=== PATIENT | female | born 1940 | race American Indian/Alaskan Native ===

== ENCOUNTER 2020-03-26 12:34 | Observation (INO) | payer MEDICAID, MEDICARE ==
[2020-03-26] MEDS ORDERED: SODIUM CHLORIDE 0.9% 500 ML 500 ML IV ONE (13:52)
--- NOTE | 2020-03-26 14:37 | XRay Report ---
CHEST 1 VIEW 03/26/2020 2:16 PM INDICATION / CLINICAL INFORMATION: possible Sepsis. COMPARISON: None available. FINDINGS: SUPPORT DEVICES: None. HEART / MEDIASTINUM: Mild cardiomegaly with sternotomy changes. LUNGS / PLEURA: Generalized mild bilateral interstitial opacities are noted. No significant pleural e ffusion. No pneumothorax. ADDITIONAL FINDINGS: No significant additional findings. IMPRESSION: Mild cardiomegaly with questionable mild pulmonary edema. Signer Name: Roberto Ovalle MD Signed: 03/26/2020 2:33 PM Workstation Name: [id number]
[2020-03-26 14:59] LABS: Hematocrit 33.5 % (30.3-42.9); Hemoglobin 11.2 gm/dl (10.1-14.3); Mean Corpuscular HGB Conc 34 % (30-34); Mean Corpuscular Volume 85 fl (79-97); Red Blood Count 3.92 M/mm3 (3.65-5.03); Red Cell Distribution Width 16.5 % (13.2-15.2)
[2020-03-26 15:01] LABS: Platelet Count 246 K/mm3 (140-440)
[2020-03-26 15:02] LABS: INR 0.92 (0.87-1.13)
--- NOTE | 2020-03-26 15:22 | Emergency Department Report ---
ED General Adult HPI - General Chief complaint: Weakness Stated complaint: FEVER/FATIQUE/NO APPETITE Time Seen by Provider: 03/26/20 13:46 Source: EMS Mode of arrival: Stretcher Limitations: No Limitations - History of Present Illness Initial comments: This is a 79-year-old female who states that her family sent her for evaluation of fever. She does not know what her temperature was. She did not take Tylenol. She denies any other specific symptoms. Actually, initially she laughs quite jovial we when she is asked why she came here today saying that her family sent her. She states that she has had fever for the past 2 to 3 days. As far as I can tell her temperature has not been measured. She denies chills. She denies cough, vomiting or diarrhea or any apparent symptoms. She states that she has never had a serious/life-threatening infection. -: Gradual, days(s) Consistency: now resolved Associated Symptoms: denies other symptoms - Related Data Allergies Allergy/AdvReac Type Severity Reaction Status Date / Time Sulfa (Sulfonamide Allergy Unknown Verified 03/26/20 14:50 Antibiotics) ED Review of Systems ROS: Stated complaint: FEVER/FATIQUE/NO APPETITE Other details as noted in HPI Constitutional: denies: chills, fever Eyes: denies: eye pain, vision change ENT: denies: ear pain, throat pain Respiratory: denies: cough, shortness of breath Cardiovascular: denies: chest pain, palpitations Endocrine: no symptoms reported Gastrointestinal: denies: abdominal pain, nausea, diarrhea Genitourinary: denies: urgency, dysuria Musculoskeletal: denies: back pain, joint swelling Skin: denies: rash, lesions Neurological: denies: headache, weakness, paresthesias Psychiatric: denies: anxiety, depression Hematological/Lymphatic: denies: easy bleeding, easy bruising ED Past Medical Hx - Past Medical History Previous Medical History?: Yes Hx Hypertension: Yes Hx Congestive Heart Failure: Yes Hx Diabetes: Yes Hx COPD: No - Surgical History Past Surgical History?: No - Social History Smoking Status: Never Smoker Substance Use Type: None ED Physical Exam - General Limitations: Physical Limitation General appearance: alert, in no apparent distress - Head Head exam: Present: atraumatic, normocephalic - Eye Eye exam: Present: normal appearance. Absent: scleral icterus - ENT ENT exam: Present: mucous membranes moist - Neck Neck exam: Present: normal inspection - Respiratory Respiratory exam: Present: normal lung sounds bilaterally. Absent: respiratory distress - Cardiovascular Cardiovascular Exam: Present: regular rate, normal rhythm. Absent: systolic murmur, diastolic murmur, rubs, gallop - GI/Abdominal GI/Abdominal exam: Present: soft, normal bowel sounds. Absent: distended, tenderness, guarding, rebound - Extremities Exam Extremities exam: Present: normal inspection. Absent: calf tenderness - Back Exam Back exam: Present: normal inspection - Neurological Exam Neurological exam: Present: alert, oriented X3, CN II-XII intact. Absent: motor sensory deficit - Psychiatric Psychiatric exam: Present: normal affect, normal mood - Skin Skin exam: Present: warm, dry, intact, normal color. Absent: rash ED Course Vital Signs 03/26/20 13:05 Temperature 98.9 F Pulse Rate 69 Respiratory 11 L Rate Blood Pressure 156/58 [Left] O2 Sat by Pulse 99 Oximetry - Reevaluation(s) Reevaluation #1: Unable to contact family. Unable to ascertain patient's current address. Charge nurse contacted [facility]. She states they will not provide contact information due to their "policy". Unable to ascertain if the patient's hypoglycemia is related to insulin administration versus infection. Discussed with hospitalist, Dr. Hernandez. Patient will be admitted. She is placed on ceftriaxone. Accu-Cheks to continue. Case management consult. 03/26/20 17:00 ED Medical Decision Making - Lab Data Result diagrams: 03/26/20 14:44 03/26/20 14:44 Laboratory Results - last 24 hr 03/26/20 03/26/20 03/26/20 14:44 14:44 14:44 WBC 10.5 RBC 3.92 Hgb 11.2 Hct 33.5 MCV 85 MCH 29 MCHC 34 RDW 16.5 H Plt Count 246 Lymph % (Auto) Fiberglass Luggage Molder [place] % (Auto) Fiberglass Luggage Molder Eos % (Auto) Fiberglass Luggage Molder Baso % (Auto) Fiberglass Luggage Molder Lymph # (Auto) Fiberglass Luggage Molder [place] # (Auto) Fiberglass Luggage Molder Eos # (Auto) Fiberglass Luggage Molder Baso # (Auto) Fiberglass Luggage Molder Add Manual Diff Complete Total Counted 100 Seg Neutrophils % Fiberglass Luggage Molder Seg Neuts % (Manual) 76.0 H Band Neutrophils % 0 Lymphocytes % (Manual) 11.0 L Reactive Lymphs % (Man) 2.0 Monocytes % (Manual) 11.0 H Eosinophils % (Manual) 0 Basophils % (Manual) 0 Metamyelocytes % 0 Myelocytes % 0 Promyelocytes % 0 Blast Cells % 0 Nucleated RBC % Not Reportable Seg Neutrophils # Fiberglass Luggage Molder Seg Neutrophils # Man 8.0 H Band Neutrophils # 0.0 Lymphocytes # (Manual) 1.2 Abs React Lymphs (Man) 0.2 Monocytes # (Manual) 1.2 H Eosinophils # (Manual) 0.0 Basophils # (Manual) 0.0 Metamyelocytes # 0.0 Myelocytes # 0.0 Promyelocytes # 0.0 Blast Cells # 0.0 WBC Morphology Not Reportable Hypersegmented Neuts Not Reportable Hyposegmented Neuts Not Reportable Hypogranular Neuts Not Reportable Smudge Cells Not Reportable Toxic Granulation Not Reportable Toxic Vacuolation Not Reportable Dohle Bodies Not Reportable Pelger-Huet Anomaly Not Reportable [place] Rods Not Reportable Platelet Estimate Consistent w auto Clumped Platelets Not Reportable Plt Clumps, EDTA Not Reportable Large Platelets Not Reportable Giant Platelets Not Reportable Platelet Satelliting Not Reportable Plt Morphology Comment Not Reportable RBC Morphology Not Reportable Dimorphic RBCs Not Reportable Polychromasia Not Reportable Hypochromasia Not Reportable Poikilocytosis Not Reportable Anisocytosis Not Reportable Microcytosis Not Reportable Macrocytosis Not Reportable Spherocytes Not Reportable Pappenheimer Bodies Not Reportable Sickle Cells Not Reportable Target Cells 1+ Tear Drop Cells Not Reportable Ovalocytes Not Reportable Helmet Cells Not Reportable [place] Bodies Not Reportable [place] Rings Not Reportable [place] Cells Not Reportable Bite Cells Not Reportable Crenated Cell Not Reportable Elliptocytes Few Acanthocytes (Spur) Not Reportable Rouleaux Not Reportable Hemoglobin C Crystals Not Reportable Schistocytes Not Reportable Malaria parasites Not Reportable Judah Bodies Not Reportable Hem Pathologist Commnt No PT 12.3 INR 0.92 VBG pH Sodium Potassium Chloride Carbon Dioxide Anion Gap BUN Creatinine Estimated GFR BUN/Creatinine Ratio Glucose Lactic Acid 1.20 Calcium Magnesium Total Bilirubin Direct Bilirubin Indirect Bilirubin AST ALT Alkaline Phosphatase Total Creatine Kinase CK-MB (CK-2) CK-MB (CK-2) Rel Index NT-Pro-B Natriuret Pep Total Protein Albumin Albumin/Globulin Ratio 1103/26/20 03/26/20 14:44 14:44 14:44 WBC RBC Hgb Hct MCV MCH MCHC RDW Plt Count Lymph % (Auto) [place] % (Auto) Eos % (Auto) Baso % (Auto) Lymph # (Auto) [place] # (Auto) Eos # (Auto) Baso # (Auto) Add Manual Diff Total Counted Seg Neutrophils % Seg Neuts % (Manual) Band Neutrophils % Lymphocytes % (Manual) Reactive Lymphs % (Man) Monocytes % (Manual) Eosinophils % (Manual) Basophils % (Manual) Metamyelocytes % Myelocytes % Promyelocytes % Blast Cells % Nucleated RBC % Seg Neutrophils # Seg Neutrophils # Man Band Neutrophils # Lymphocytes # (Manual) Abs React Lymphs (Man) Monocytes # (Manual) Eosinophils # (Manual) Basophils # (Manual) Metamyelocytes # Myelocytes # Promyelocytes # Blast Cells # WBC Morphology TNR Hypersegmented Neuts Hyposegmented Neuts Hypogranular Neuts Smudge Cells Toxic Granulation Toxic Vacuolation Dohle Bodies Pelger-Huet Anomaly [place] Rods Platelet Estimate Clumped Platelets Plt Clumps, EDTA Large Platelets Giant Platelets Platelet Satelliting Plt Morphology Comment RBC Morphology Dimorphic RBCs Polychromasia Hypochromasia Poikilocytosis Anisocytosis Microcytosis Macrocytosis Spherocytes Pappenheimer Bodies Sickle Cells Target Cells Tear Drop Cells Ovalocytes Helmet Cells [place] Bodies [place] Rings Nany Cells Bite Cells Crenated Cell Elliptocytes Acanthocytes (Spur) Rouleaux Hemoglobin C Crystals Schistocytes Malaria parasites Judah Bodies Hem Pathologist Commnt PT INR VBG pH 7.505 H Sodium 142 Potassium 3.2 L Chloride 104.8 Carbon Dioxide 26 Anion Gap 14 BUN 24 H Creatinine 1.1 Estimated GFR 58 BUN/Creatinine Ratio 22 Glucose 46 L Lactic Acid Calcium 9.0 Magnesium 2.20 Total Bilirubin 0.50 Direct Bilirubin < 0.2 Indirect Bilirubin 0.3 AST 31 ALT 18 Alkaline Phosphatase 59 Total Creatine Kinase 480 H CK-MB (CK-2) 1.7 CK-MB (CK-2) Rel Index 0.3 NT-Pro-B Natriuret Pep 896.3 Total Protein 6.9 Albumin 3.8 L Albumin/Globulin Ratio 1.2 Laboratory Results - last 24 hr 03/26/20 03/26/20 03/26/20 14:44 14:44 14:44 WBC 10.5 RBC 3.92 Hgb 11.2 Hct 33.5 MCV 85 MCH 29 MCHC 34 RDW 16.5 H Plt Count 246 Lymph % (Auto) Fiberglass Luggage Molder [place] % (Auto) Fiberglass Luggage Molder Eos % (Auto) Fiberglass Luggage Molder Baso % (Auto) Fiberglass Luggage Molder Lymph # (Auto) Fiberglass Luggage Molder [place] # (Auto) Fiberglass Luggage Molder Eos # (Auto) Fiberglass Luggage Molder Baso # (Auto) Fiberglass Luggage Molder Add Manual Diff Complete Total Counted 100 Seg Neutrophils % Fiberglass Luggage Molder Seg Neuts % (Manual) 76.0 H Band Neutrophils % 0 Lymphocytes % (Manual) 11.0 L Reactive Lymphs % (Man) 2.0 Monocytes % (Manual) 11.0 H Eosinophils % (Manual) 0 Basophils % (Manual) 0 Metamyelocytes % 0 Myelocytes % 0 Promyelocytes % 0 Blast Cells % 0 Nucleated RBC % Not Reportable Seg Neutrophils # Fiberglass Luggage Molder Seg Neutrophils # Man 8.0 H Band Neutrophils # 0.0 Lymphocytes # (Manual) 1.2 Abs React Lymphs (Man) 0.2 Monocytes # (Manual) 1.2 H Eosinophils # (Manual) 0.0 Basophils # (Manual) 0.0 Metamyelocytes # 0.0 Myelocytes # 0.0 Promyelocytes # 0.0 Blast Cells # 0.0 WBC Morphology Not Reportable Hypersegmented Neuts Not Reportable Hyposegmented Neuts Not Reportable Hypogranular Neuts Not Reportable Smudge Cells Not Reportable Toxic Granulation Not Reportable Toxic Vacuolation Not Reportable Dohle Bodies Not Reportable Pelger-Huet Anomaly Not Reportable [place] Rods Not Reportable Platelet Estimate Consistent w auto Clumped Platelets Not Reportable Plt Clumps, EDTA Not Reportable Large Platelets Not Reportable Giant Platelets Not Reportable Platelet Satelliting Not Reportable Plt Morphology Comment Not Reportable RBC Morphology Not Reportable Dimorphic RBCs Not Reportable Polychromasia Not Reportable Hypochromasia Not Reportable Poikilocytosis Not Reportable Anisocytosis Not Reportable Microcytosis Not Reportable Macrocytosis Not Reportable Spherocytes Not Reportable Pappenheimer Bodies Not Reportable Sickle Cells Not Reportable Target Cells 1+ Tear Drop Cells Not Reportable Ovalocytes Not Reportable Helmet Cells Not Reportable [place] Bodies Not Reportable [place] Rings Not Reportable [place] Cells Not Reportable Bite Cells Not Reportable Crenated Cell Not Reportable Elliptocytes Few Acanthocytes (Spur) Not Reportable Rouleaux Not Reportable Hemoglobin C Crystals Not Reportable Schistocytes Not Reportable Malaria parasites Not Reportable Judah Bodies Not Reportable Hem Pathologist Commnt No PT 12.3 INR 0.92 VBG pH Sodium Potassium Chloride Carbon Dioxide Anion Gap BUN Creatinine Estimated GFR BUN/Creatinine Ratio Glucose Lactic Acid 1.20 Calcium Magnesium Total Bilirubin Direct Bilirubin Indirect Bilirubin AST ALT Alkaline Phosphatase Total Creatine Kinase CK-MB (CK-2) CK-MB (CK-2) Rel Index NT-Pro-B Natriuret Pep Total Protein Albumin Albumin/Globulin Ratio Urine Color Urine Turbidity Urine pH Ur Specific [place] Urine Protein Urine Glucose (UA) Urine Ketones Urine Blood Urine Nitrite Urine Bilirubin Urine Urobilinogen Ur Leukocyte Esterase Urine WBC (Auto) Urine RBC (Auto) U Epithel Cells (Auto) Urine Bacteria (Auto) Urine WBC Clumps Urine Yeast (Budding) 03/26/20 03/26/20 03/26/20 14:44 14:44 14:44 WBC RBC Hgb Hct MCV MCH MCHC RDW Plt Count Lymph % (Auto) [place] % (Auto) Eos % (Auto) Baso % (Auto) Lymph # (Auto) [place] # (Auto) Eos # (Auto) Baso # (Auto) Add Manual Diff Total Counted Seg Neutrophils % Seg Neuts % (Manual) Band Neutrophils % Lymphocytes % (Manual) Reactive Lymphs % (Man) Monocytes % (Manual) Eosinophils % (Manual) Basophils % (Manual) Metamyelocytes % Myelocytes % Promyelocytes % Blast Cells % Nucleated RBC % Seg Neutrophils # Seg Neutrophils # Man Band Neutrophils # Lymphocytes # (Manual) Abs React Lymphs (Man) Monocytes # (Manual) Eosinophils # (Manual) Basophils # (Manual) Metamyelocytes # Myelocytes # Promyelocytes # Blast Cells # WBC Morphology TNR Hypersegmented Neuts Hyposegmented Neuts Hypogranular Neuts Smudge Cells Toxic Granulation Toxic Vacuolation Dohle Bodies Pelger-Huet Anomaly [place] Rods Platelet Estimate Clumped Platelets Plt Clumps, EDTA Large Platelets Giant Platelets Platelet Satelliting Plt Morphology Comment RBC Morphology Dimorphic RBCs Polychromasia Hypochromasia Poikilocytosis Anisocytosis Microcytosis Macrocytosis Spherocytes Pappenheimer Bodies Sickle Cells Target Cells Tear Drop Cells Ovalocytes Helmet Cells [place] Bodies [place] Rings Nany Cells Bite Cells Crenated Cell Elliptocytes Acanthocytes (Spur) Rouleaux Hemoglobin C Crystals Schistocytes Malaria parasites Judah Bodies Hem Pathologist Commnt PT INR VBG pH 7.505 H Sodium 142 Potassium 3.2 L Chloride 104.8 Carbon Dioxide 26 Anion Gap 14 BUN 24 H Creatinine 1.1 Estimated GFR 58 BUN/Creatinine Ratio 22 Glucose 46 L Lactic Acid Calcium 9.0 Magnesium 2.20 Total Bilirubin 0.50 Direct Bilirubin < 0.2 Indirect Bilirubin 0.3 AST 31 ALT 18 Alkaline Phosphatase 59 Total Creatine Kinase 480 H CK-MB (CK-2) 1.7 CK-MB (CK-2) Rel Index 0.3 NT-Pro-B Natriuret Pep 896.3 Total Protein 6.9 Albumin 3.8 L Albumin/Globulin Ratio 1.2 Urine Color Urine Turbidity Urine pH Ur Specific [place] Urine Protein Urine Glucose (UA) Urine Ketones Urine Blood Urine Nitrite Urine Bilirubin Urine Urobilinogen Ur Leukocyte Esterase Urine WBC (Auto) Urine RBC (Auto) U Epithel Cells (Auto) Urine Bacteria (Auto) Urine WBC Clumps Urine Yeast (Budding) 03/26/20 Unknown WBC RBC Hgb Hct MCV MCH MCHC RDW Plt Count Lymph % (Auto) [place] % (Auto) Eos % (Auto) Baso % (Auto) Lymph # (Auto) [place] # (Auto) Eos # (Auto) Baso # (Auto) Add Manual Diff Total Counted Seg Neutrophils % Seg Neuts % (Manual) Band Neutrophils % Lymphocytes % (Manual) Reactive Lymphs % (Man) Monocytes % (Manual) Eosinophils % (Manual) Basophils % (Manual) Metamyelocytes % Myelocytes % Promyelocytes % Blast Cells % Nucleated RBC % Seg Neutrophils # Seg Neutrophils # Man Band Neutrophils # Lymphocytes # (Manual) Abs React Lymphs (Man) Monocytes # (Manual) Eosinophils # (Manual) Basophils # (Manual) Metamyelocytes # Myelocytes # Promyelocytes # Blast Cells # WBC Morphology Hypersegmented Neuts Hyposegmented Neuts Hypogranular Neuts Smudge Cells Toxic Granulation Toxic Vacuolation Dohle Bodies Pelger-Huet Anomaly [place] Rods Platelet Estimate Clumped Platelets Plt Clumps, EDTA Large Platelets Giant Platelets Platelet Satelliting Plt Morphology Comment RBC Morphology Dimorphic RBCs Polychromasia Hypochromasia Poikilocytosis Anisocytosis Microcytosis Macrocytosis Spherocytes Pappenheimer Bodies Sickle Cells Target Cells Tear Drop Cells Ovalocytes Helmet Cells [place] Bodies [place] Rings Nany Cells Bite Cells Crenated Cell Elliptocytes Acanthocytes (Spur) Rouleaux Hemoglobin C Crystals Schistocytes Malaria parasites Judah Bodies Hem Pathologist Commnt PT INR VBG pH Sodium Potassium Chloride Carbon Dioxide Anion Gap BUN Creatinine Estimated GFR BUN/Creatinine Ratio Glucose Lactic Acid Calcium Magnesium Total Bilirubin Direct Bilirubin Indirect Bilirubin AST ALT Alkaline Phosphatase Total Creatine Kinase CK-MB (CK-2) CK-MB (CK-2) Rel Index NT-Pro-B Natriuret Pep Total Protein Albumin Albumin/Globulin Ratio Urine Color Yellow Urine Turbidity Cloudy Urine pH 6.0 Ur Specific [place] 1.016 Urine Protein 100 mg/dl Urine Glucose (UA) Neg Urine Ketones Neg Urine Blood Neg Urine Nitrite Pos Urine Bilirubin Neg Urine Urobilinogen < 2.0 Ur Leukocyte Esterase Lg Urine WBC (Auto) > 182.0 H Urine RBC (Auto) 7.0 U Epithel Cells (Auto) 2.0 Urine Bacteria (Auto) 2+ Urine WBC Clumps 2+ Urine Yeast (Budding) 1+ Critical care attestation.: If time is entered above; I have spent that time in minutes in the direct care of this critically ill patient, excluding procedure time. ED Disposition Clinical Impression: Acute pyelonephritis, Hypoglycemia, Insulin dependent diabetes mellitus, Case management patient Disposition: OP ADMIT IP TO THIS HOSP Is pt being admited?: Yes Does the pt Need Aspirin: Yes Condition: Stable Instructions: Diabetes Mellitus Type 2 in Adults (ED) Referrals: PRIMARY CAREMD [Primary Care Provider] - 3-5 Days Time of Disposition: 17:01
[2020-03-26 15:24] LABS: Alanine Aminotransferase 18 units/L (7-56); Albumin 3.8 g/dL (3.9-5); BUN/Creatinine Ratio 22; Blood Urea Nitrogen 24 mg/dL (7-17); Creatine Kinase MB 1.7 ng/mL (0.0-4.0); Hemolysis Index 9
[2020-03-26] MEDS ORDERED: DEXTROSE 50% IN WATER (25GM) 50 ML SYRINGE IV ONE (15:26)
[2020-03-26 15:27] LABS: Bilirubin,Direct < 0.2 mg/dL (0-0.2)
[2020-03-26 15:39] LABS: Basophils % (Manual) 0 % (0.0-1.8); Eosinophils % (Manual) 0 % (0.0-4.3); Total Cells Counted 100
[2020-03-26 15:40] LABS: Target Cells 1+
[2020-03-26 15:41] LABS: Platelet Estimate Consistent w Auto
[2020-03-26] MEDS ORDERED: POTASSIUM CHLORIDE ER 20 MEQ TAB PO ONE ×2 (15:47→23:01)
[2020-03-26 16:48] LABS: Bacteria,Urine 2+ /HPF (Negative); Bilirubin,Urine NEG (Negative); Blood,Urine NEG (Negative); Color,Urine Yellow (Yellow); Urobilinogen,Urine < 2.0 mg/dL (<2.0)
[2020-03-26 16:51] LABS: WBC,Urine > 182.0 /HPF (0.0-6.0)
[2020-03-26] MEDS ORDERED: cefTRIAXone/NS 1 GM/50 ML 1 GM/50 ML BAG IV ONE (17:04)
[2020-03-26] MEDS ORDERED: ASPIRIN 325 MG TAB ONE (18:52)
[2020-03-26] MEDS: ASPIRIN 325 MG TAB PO SCH (19:00)
[2020-03-26 20:11] LABS: Mucus,Urine FEW /HPF
--- NOTE | 2020-03-26 22:53 | History and Physical Report ---
History of Present Illness Date of examination: 03/26/20 Date of admission: 03/26/20 17:16 Chief complaint: Fever for 1 day History of present illness: 79-year-old female with history of hypertension diabetes and congestive heart failure comes in for fever of 2 to 3 days duration. Patient has been having fever 2 to 3 days. Has dysuria no cough. No exposure to coronavirus. No flank pain. - Past Medical History Previous Medical History?: Yes --Hypertension: Yes --Congestive Heart Failure: Yes --Diabetes: Yes - Surgical History Past Surgical History?: No - Social History Smoking Status: Never Smoker Substance Use Type: None Review of Systems ROS: Stated complaint: FEVER/FATIQUE/NO APPETITE Other details as noted in HPI Constitutional: denies: chills, fever Eyes: denies: eye pain, vision change ENT: denies: ear pain, throat pain Respiratory: denies: cough, shortness of breath Cardiovascular: denies: chest pain, palpitations Endocrine: no symptoms reported Gastrointestinal: denies: abdominal pain, nausea, diarrhea Genitourinary: denies: urgency, dysuria Musculoskeletal: denies: back pain, joint swelling Skin: denies: rash, lesions Neurological: denies: headache, weakness, paresthesias Psychiatric: denies: anxiety, depression Hematological/Lymphatic: denies: easy bleeding, easy bruising Medications and Allergies Allergies Allergy/AdvReac Type Severity Reaction Status Date / Time Sulfa (Sulfonamide Allergy Unknown Verified 03/26/20 14:50 Antibiotics) Home Medications Medication Instructions Recorded Confirmed Last Taken Type Esomeprazole Magnesium 20 mg PO DAILY 03/26/20 03/26/20 Unknown History Ezetimibe 10 mg PO DAILY 03/26/20 03/26/20 Unknown History Hydralazine HCl 100 mg PO DAILY 03/26/20 03/26/20 Unknown History Januvia 100 mg PO DAILY 03/26/20 03/26/20 Unknown History Lasix TAB 20 mg PO DAILY 03/26/20 03/26/20 Unknown History Metoprolol 100 mg DAILY 03/26/20 03/26/20 Unknown History Olmesartan (Nf) 40 mg PO DAILY 03/26/20 03/26/20 Unknown History Rosuvastatin (Nf) 40 mg PO DAILY 03/26/20 03/26/20 Unknown History Spironolactone [Aldactone] 25 mg PO DAILY 03/26/20 03/26/20 Unknown History Tresiba 54 units SUB-Q QHS 03/26/20 03/26/20 Unknown History amLODIPine 10 mg PO DAILY 03/26/20 03/26/20 Unknown History glipiZIDE 5 mg PO DAILY 03/26/20 03/26/20 Unknown History Active Meds: Active Medications Aspirin (Aspirin) 325 mg PO QDAY FRANCO Last Admin: 03/26/20 19:00 Dose: 325 mg Documented by: Exam - Constitutional Vitals: Temp Pulse Resp BP Pulse Ox 98.9 F 79 15 163/61 96 03/26/20 13:05 03/26/20 18:00 03/26/20 18:00 03/26/20 18:00 03/26/20 18:00 General appearance: Present: no acute distress, well-nourished - EENT Eyes: Present: PERRL ENT: hearing intact, clear oral mucosa - Neck Neck: Present: supple, normal ROM - Respiratory Respiratory effort: normal Respiratory: bilateral: CTA - Cardiovascular Heart rate: 88 Rhythm: regular Heart Sounds: Present: S1 & S2. Absent: rub, click - Extremities Extremities: no ischemia, pulses intact, pulses symmetrical, No edema Peripheral Pulses: within normal limits - Abdominal General gastrointestinal: Present: soft, non-tender, non-distended, normal bowel sounds Female genitourinary: Present: normal - Integumentary Integumentary: Present: clear, warm, dry - Musculoskeletal Musculoskeletal: gait normal, strength equal bilaterally - Psychiatric Psychiatric: appropriate mood/affect, intact judgment & insight - Neurologic Neurologic: CNII-XII intact, moves all extremities - Allied Health Allied health notes reviewed: nursing, case management Results - Labs CBC & Chem 7: 03/27/20 02:39 03/27/20 02:39 Labs: Laboratory Last Values WBC 10.5 K/mm3 (4.5-11.0) 03/26/20 14:44 RBC 3.92 M/mm3 (3.65-5.03) 03/26/20 14:44 Hgb 11.2 gm/dl (10.1-14.3) 03/26/20 14:44 Hct 33.5 % (30.3-42.9) 03/26/20 14:44 MCV 85 fl (79-97) 03/26/20 14:44 MCH 29 pg (28-32) 03/26/20 14:44 MCHC 34 % (30-34) 03/26/20 14:44 RDW 16.5 % (13.2-15.2) H 03/26/20 14:44 Plt Count 246 K/mm3 (140-440) 03/26/20 14:44 Lymph % (Auto) Neighborhood Coordinator 03/26/20 14:44 [place] % (Auto) Neighborhood Coordinator 03/26/20 14:44 Eos % (Auto) Neighborhood Coordinator 03/26/20 14:44 Baso % (Auto) Neighborhood Coordinator 03/26/20 14:44 Lymph # (Auto) Neighborhood Coordinator 03/26/20 14:44 [place] # (Auto) Neighborhood Coordinator 03/26/20 14:44 Eos # (Auto) Neighborhood Coordinator 03/26/20 14:44 Baso # (Auto) Neighborhood Coordinator 03/26/20 14:44 Add Manual Diff Complete 03/26/20 14:44 Total Counted 100 03/26/20 14:44 Seg Neutrophils % Neighborhood Coordinator 03/26/20 14:44 Seg Neuts % (Manual) 76.0 % (40.0-70.0) H 03/26/20 14:44 Band Neutrophils % 0 % 03/26/20 14:44 Lymphocytes % (Manual) 11.0 % (13.4-35.0) L 03/26/20 14:44 Reactive Lymphs % (Man) 2.0 % 03/26/20 14:44 Monocytes % (Manual) 11.0 % (0.0-7.3) H 03/26/20 14:44 Eosinophils % (Manual) 0 % (0.0-4.3) 03/26/20 14:44 Basophils % (Manual) 0 % (0.0-1.8) 03/26/20 14:44 Metamyelocytes % 0 % 03/26/20 14:44 Myelocytes % 0 % 03/26/20 14:44 Promyelocytes % 0 % 03/26/20 14:44 Blast Cells % 0 % 03/26/20 14:44 Nucleated RBC % Not Reportable 03/26/20 14:44 Seg Neutrophils # Neighborhood Coordinator 03/26/20 14:44 Seg Neutrophils # Man 8.0 K/mm3 (1.8-7.7) H 03/26/20 14:44 Band Neutrophils # 0.0 K/mm3 03/26/20 14:44 Lymphocytes # (Manual) 1.2 K/mm3 (1.2-5.4) 03/26/20 14:44 Abs React Lymphs (Man) 0.2 K/mm3 03/26/20 14:44 Monocytes # (Manual) 1.2 K/mm3 (0.0-0.8) H 03/26/20 14:44 Eosinophils # (Manual) 0.0 K/mm3 (0.0-0.4) 03/26/20 14:44 Basophils # (Manual) 0.0 K/mm3 (0.0-0.1) 03/26/20 14:44 Metamyelocytes # 0.0 K/mm3 03/26/20 14:44 Myelocytes # 0.0 K/mm3 03/26/20 14:44 Promyelocytes # 0.0 K/mm3 03/26/20 14:44 Blast Cells # 0.0 K/mm3 03/26/20 14:44 WBC Morphology Not Reportable 03/26/20 14:44 WBC Morphology TNR 03/26/20 14:44 Hypersegmented Neuts Not Reportable 03/26/20 14:44 Hyposegmented Neuts Not Reportable 03/26/20 14:44 Hypogranular Neuts Not Reportable 03/26/20 14:44 Smudge Cells Not Reportable 03/26/20 14:44 Toxic Granulation Not Reportable 03/26/20 14:44 Toxic Vacuolation Not Reportable 03/26/20 14:44 Dohle Bodies Not Reportable 03/26/20 14:44 Pelger-Huet Anomaly Not Reportable 03/26/20 14:44 [place] Rods Not Reportable 03/26/20 14:44 Platelet Estimate Consistent w auto 03/26/20 14:44 Clumped Platelets Not Reportable 03/26/20 14:44 Plt Clumps, EDTA Not Reportable 03/26/20 14:44 Large Platelets Not Reportable 03/26/20 14:44 Giant Platelets Not Reportable 03/26/20 14:44 Platelet Satelliting Not Reportable 03/26/20 14:44 Plt Morphology Comment Not Reportable 03/26/20 14:44 RBC Morphology Not Reportable 03/26/20 14:44 Dimorphic RBCs Not Reportable 03/26/20 14:44 Polychromasia Not Reportable 03/26/20 14:44 Hypochromasia Not Reportable 03/26/20 14:44 Poikilocytosis Not Reportable 03/26/20 14:44 Anisocytosis Not Reportable 03/26/20 14:44 Microcytosis Not Reportable 03/26/20 14:44 Macrocytosis Not Reportable 03/26/20 14:44 Spherocytes Not Reportable 03/26/20 14:44 Pappenheimer Bodies Not Reportable 03/26/20 14:44 Sickle Cells Not Reportable 03/26/20 14:44 Target Cells 1+ 03/26/20 14:44 Tear Drop Cells Not Reportable 03/26/20 14:44 Ovalocytes Not Reportable 03/26/20 14:44 Helmet Cells Not Reportable 03/26/20 14:44 [place] Bodies Not Reportable 03/26/20 14:44 [place] Rings Not Reportable 03/26/20 14:44 [place] Cells Not Reportable 03/26/20 14:44 Bite Cells Not Reportable 03/26/20 14:44 Crenated Cell Not Reportable 03/26/20 14:44 Elliptocytes Few 03/26/20 14:44 Acanthocytes (Spur) Not Reportable 03/26/20 14:44 Rouleaux Not Reportable 03/26/20 14:44 Hemoglobin C Crystals Not Reportable 03/26/20 14:44 Schistocytes Not Reportable 03/26/20 14:44 Malaria parasites Not Reportable 03/26/20 14:44 Judah Bodies Not Reportable 03/26/20 14:44 Hem Pathologist Commnt No 03/26/20 14:44 PT 12.3 Sec. (12.2-14.9) 03/26/20 14:44 INR 0.92 (0.87-1.13) 03/26/20 14:44 VBG pH 7.505 (7.320-7.420) H 03/26/20 14:44 Sodium 142 mmol/L (137-145) 03/26/20 14:44 Potassium 3.2 mmol/L (3.6-5.0) L 03/26/20 14:44 Chloride 104.8 mmol/L (98-107) 03/26/20 14:44 Carbon Dioxide 26 mmol/L (22-30) 03/26/20 14:44 Anion Gap 14 mmol/L 03/26/20 14:44 BUN 24 mg/dL (7-17) H 03/26/20 14:44 Creatinine 1.1 mg/dL (0.6-1.2) 03/26/20 14:44 Estimated GFR 58 ml/min 03/26/20 14:44 BUN/Creatinine Ratio 22 % 03/26/20 14:44 Glucose 46 mg/dL (65-100) L 03/26/20 14:44 POC Glucose 135 mg/dL (70-105) H 03/26/20 17:33 Lactic Acid 1.20 mmol/L (0.7-2.0) 03/26/20 14:44 Calcium 9.0 mg/dL (8.4-10.2) 03/26/20 14:44 Magnesium 2.20 mg/dL (1.7-2.3) 03/26/20 14:44 Total Bilirubin 0.50 mg/dL (0.1-1.2) 03/26/20 14:44 Direct Bilirubin < 0.2 mg/dL (0-0.2) 03/26/20 14:44 Indirect Bilirubin 0.3 mg/dL 03/26/20 14:44 AST 31 units/L (5-40) 03/26/20 14:44 ALT 18 units/L (7-56) 03/26/20 14:44 Alkaline Phosphatase 59 units/L (35-129) 03/26/20 14:44 Total Creatine Kinase 480 units/L (30-135) H 03/26/20 14:44 CK-MB (CK-2) 1.7 ng/mL (0.0-4.0) 03/26/20 14:44 CK-MB (CK-2) Rel Index 0.3 (0-4) 03/26/20 14:44 NT-Pro-B Natriuret Pep 896.3 pg/mL (0-900) 03/26/20 14:44 Total Protein 6.9 g/dL (6.3-8.2) 03/26/20 14:44 Albumin 3.8 g/dL (3.9-5) L 03/26/20 14:44 Albumin/Globulin Ratio 1.2 % 03/26/20 14:44 Urine Color Yellow (Yellow) 03/26/20 Unknown Urine Turbidity Cloudy (Clear) 03/26/20 Unknown Urine pH 6.0 (5.0-7.0) 03/26/20 Unknown Ur Specific [place] 1.016 (1.003-1.030) 03/26/20 Unknown Urine Protein 100 mg/dl mg/dL (Negative) 03/26/20 Unknown Urine Glucose (UA) Neg mg/dL (Negative) 03/26/20 Unknown Urine Ketones Neg mg/dL (Negative) 03/26/20 Unknown Urine Blood Neg (Negative) 03/26/20 Unknown Urine Nitrite Pos (Negative) 03/26/20 Unknown Urine Bilirubin Neg (Negative) 03/26/20 Unknown Urine Urobilinogen < 2.0 mg/dL (<2.0) 03/26/20 Unknown Ur Leukocyte Esterase Lg (Negative) 03/26/20 Unknown Urine WBC (Auto) > 182.0 /HPF (0.0-6.0) H 03/26/20 Unknown Urine RBC (Auto) 7.0 /HPF (0.0-6.0) 03/26/20 Unknown U Epithel Cells (Auto) 2.0 /HPF (0-13.0) 03/26/20 Unknown Urine Bacteria (Auto) 2+ /HPF (Negative) 03/26/20 Unknown Urine WBC Clumps 2+ /HPF 03/26/20 Unknown Urine Mucus Few /HPF 03/26/20 Unknown Urine Yeast (Budding) 1+ /HPF 03/26/20 Unknown Microbiology: Microbiology 03/26/20 14:44 Peripheral/Venous Blood Culture - Preliminary Culture in Progress 03/26/20 14:44 Peripheral/Venous Blood Culture - Preliminary Culture in Progress - Imaging and Cardiology EKG: report reviewed Chest x-ray: report reviewed (No acute findings) [place]/IV: IV Catheter Type [Left Hand] INT / Saline Lock Assessment and Plan Advance Directives: Yes (Full code) VTE prophylaxis?: Chemical Plan of care discussed with patient/family: Yes - Patient Problems (1) Acute pyelonephritis Current Visit: Yes Status: Acute Plan to address problem: Patient initiated on IV Rocephin pending urine cultures and blood cultures (2) Hypokalemia Current Visit: Yes Status: Acute Plan to address problem: Supplemented (3) Hypertension Current Visit: Yes Status: Chronic Qualifiers: Hypertension type: essential hypertension Qualified Code(s): I10 - Essential (primary) hypertension Plan to address problem: Continue antihypertensives (4) Insulin dependent diabetes mellitus Current Visit: Yes Status: Chronic Plan to address problem: Patient on multiple oral hypoglycemics and long-acting insulin called Tresiba Small oral hypoglycemics may be stopped Will defer to primary team (5) CHF (congestive heart failure) Current Visit: Yes Status: Chronic Qualifiers: Heart failure type: combined systolic and diastolic Plan to address problem: On spinal lactone (6) DVT prophylaxis Current Visit: Yes Status: Acute Plan to address problem: On heparin and GI prophylaxis
[2020-03-26] MEDS ORDERED: ACETAMINOPHEN 325 MG TAB PO PRN (22:57)
[2020-03-26] MEDS ORDERED: oxyCODONE /ACETAMINOPHEN 5-325MG TAB PO PRN (22:57)
[2020-03-26] MEDS ORDERED: HYDROmorphone 1 MG/1 ML INJ IV PRN (22:57)
[2020-03-26] MEDS ORDERED: ONDANSETRON 4 MG/2 ML INJ IV PRN (22:57)
[2020-03-26] MEDS ORDERED: SODIUM CHLORIDE 0.9% 1000 ML 1,000 ML IV SCH (23:00)
[2020-03-27 03:22] LABS: Basophils # (Auto) 0.1 K/mm3 (0.0-0.1); Basophils % (Auto) 0.8 % (0.0-1.8); Eosinophils # (Auto) 0.2 K/mm3 (0.0-0.4); Eosinophils % (Auto) 2.9 % (0.0-4.3); Hematocrit 31.9 % (30.3-42.9); Hemoglobin 10.5 gm/dl (10.1-14.3); Lymphocytes # (Auto) 1.2 K/mm3 (1.2-5.4); Lymphocytes % (Auto) 15.6 % (13.4-35.0); Mean Corpuscular HGB Conc 33 % (30-34); Mean Corpuscular Volume 85 fl (79-97); Monocytes # (Auto) 0.7 K/mm3 (0.0-0.8); Monocytes % (Auto) 9.5 % (0.0-7.3); Platelet Count 263 K/mm3 (140-440); Red Blood Count 3.73 M/mm3 (3.65-5.03); Red Cell Distribution Width 16.6 % (13.2-15.2)
[2020-03-27 03:38] LABS: Alanine Aminotransferase 23 units/L (7-56); Albumin 3.5 g/dL (3.9-5); BUN/Creatinine Ratio 21; Blood Urea Nitrogen 19 mg/dL (7-17); Calcium 8.7 mg/dL (8.4-10.2); Hemolysis Index 27
[2020-03-27] MEDS ORDERED: PANTOPRAZOLE 20 MG TAB PO SCH (07:30)
[2020-03-27] MEDS ORDERED: glipiZIDE 5 MG TAB PO SCH (08:00)
[2020-03-27] MEDS ORDERED: GLIPIZIDE 5 MG PO SCH (10:00)
[2020-03-27] MEDS ORDERED: ROSUVASTATIN 40 MG PO SCH (10:00)
[2020-03-27] MEDS ORDERED: FAMOTIDINE 20 MG/2 ML INJ IV SCH ×2 (10:00)
[2020-03-27] MEDS ORDERED: LOSARTAN 50 MG TAB PO SCH (10:00)
[2020-03-27] MEDS ORDERED: HYDRALAZINE HCL 100 MG PO SCH (10:00)
[2020-03-27] MEDS ORDERED: hydrALAZINE 100 MG TAB PO SCH (10:00)
[2020-03-27] MEDS ORDERED: SPIRONOLACTONE 25 MG TAB PO SCH (10:00)
[2020-03-27] MEDS ORDERED: FUROSEMIDE 20 MG TAB PO SCH (10:00)
[2020-03-27] MEDS ORDERED: NON-FORMULARY EACH (Lasix Tab 20 MG) PO SCH (10:00)
[2020-03-27] MEDS ORDERED: NON-FORMULARY EACH (Esomeprazole Magnesium 20 MG) PO SCH (10:00)
[2020-03-27] MEDS ORDERED: EZETIMIBE 10 MG PO SCH (10:00)
[2020-03-27] MEDS ORDERED: cefTRIAXone/NS 2 GM/100 ML 2 GM/100 ML BAG IV SCH (10:00)
[2020-03-27] MEDS ORDERED: EZETIMIBE 10 MG TAB PO SCH (10:00)
[2020-03-27] MEDS ORDERED: LINAGLIPTIN 5 MG TAB PO SCH (10:00)
[2020-03-27] MEDS ORDERED: NON-FORMULARY EACH (Amlodipine 10 MG) PO SCH (10:00)
[2020-03-27] MEDS ORDERED: OLMESARTAN 40 MG PO SCH (10:00)
[2020-03-27] MEDS ORDERED: amLODIPine 10 MG TAB PO SCH (10:00)
[2020-03-27] MEDS ORDERED: METOPROLOL 100 MG PO SCH (10:00)
[2020-03-27] MEDS ORDERED: JANUVIA 100 MG PO SCH (10:00)
[2020-03-27] MEDS ORDERED: HEPARIN 5,000 UNIT/1 ML VIAL SUB-Q SCH (10:00)
[2020-03-27] MEDS ORDERED: METOPROLOL TARTRATE 100 MG TAB PO SCH ×2 (10:00→12:00)
[2020-03-27] MEDS: ASPIRIN 325 MG TAB PO SCH (11:51)
[2020-03-27 11:54] VITALS: BP 173/76
--- NOTE | 2020-03-27 12:50 | Discharge Summary ---
Providers - Providers Date of Admission: 03/26/20 17:16 Date of discharge: 03/27/20 Attending physician: LUISA SANFORD 03/26/20 17:07 Consult to Case Management [CONS] Urgent Services Needed at Discharge: Home Health Services Notified:: no Additional Physician Instructions: Insulin-dependent diabetic. No family contact. Admitted for pyelonephritis and hypoglycemia. 03/27/20 10:21 Physical Therapy Evaluation and Treat [CONS] Routine Comment: Reason For Exam: placement Primary care physician: JULIAN LUEVANO MD Hospitalization Condition: Stable Hospital course: 79-year-old female with history of hypertension diabetes and congestive heart failure comes in for fever of 2 to 3 days duration. Patient denies any exposure to COVID-19, cough or respiratory distress/short of breath. She does endorse dysuria but no flank pain. Work-up in the ER revealed urinary tract infection. Patient was admitted to the hospital started on empiric IV antibiotic, culture was obtained. Patient remains afebrile in the hospital, her white count was normal. Patient will placed on oral antibiotic and discharged home with outpatient follow-up in stable condition. Discharge diagnosis: Acute UTI and pyelonephritis Hypokalemia, repleted Insulin-dependent diabetes mellitus type 2 CHF, compensated with unknown EF Time spent for discharge: 34 minutes Core Measure Documentation - Palliative Care Palliative Care/ Comfort Measures: Not Applicable - Core Measures Any of the following diagnoses?: history only Exam - Constitutional Vitals: Temp Pulse Resp BP Pulse Ox 99.3 F 89 16 173/76 97 03/27/20 04:58 03/27/20 11:49 03/27/20 04:58 03/27/20 11:50 03/27/20 04:58 Plan Activity: advance as tolerated Weight Bearing Status: Weight Bear as Tolerated Diet: low fat, low salt Special Instructions: restrict fluid intake to (1.5L daily) Follow up with: PRIMARY CARE, [Primary Care Provider] - 3-5 Days Prescriptions: levoFLOXacin [Levaquin] 750 mg PO QDAY #5 tablet
[2020-03-27] MEDS ORDERED: TRESIBA SUB-Q SCH (22:00)
[2020-03-27] MEDS ORDERED: FAMOTIDINE 20 MG TAB PO SCH (22:00)
[2020-03-27] MEDS ORDERED: INSULIN GLARGINE 100 UNITS/ML SUB-Q SCH (22:00)
== END 2020-03-27 21:00 | disposition home or self-care (01) ==
LOC: ED 12:34 → 3A 17:16
PROVIDERS: ADMIT Internal Medicine; ATTEND Internal Medicine
DX: N10 Acute pyelonephritis (principal); I11.0 Hypertensive heart disease with heart failure; I50.9 Heart failure, unspecified; E11.649 Type 2 diabetes mellitus with hypoglycemia without coma; E87.6 Hypokalemia; N39.0 Urinary tract infection, site not specified; Z79.82 Long term (current) use of aspirin
CPT/HCPCS: 36415; 71045; 80048; 80053; 80076; 81001; 82140; 82550; 82553; 82805; 82962; 83036; 83735; 83880; 85025; 85610; 87040; 87076; 87086; 87186; 93005; 96361; 96365; 96366; 96372; 96375; 99285; A9270; G0378; J0696; J1644; J7030; J7040; 85007

== ENCOUNTER 2020-04-05 14:54 | Emergency (ER) | payer MEDICARE ==
--- NOTE | 2020-04-05 15:10 | Emergency Department Report ---
- General Stated complaint: GENERAL WEEKNESS,FREQUANT FALLS Time Seen by Provider: 04/05/20 15:01 Source: patient, EMS, old records reviewed Mode of arrival: Stretcher Limitations: No Limitations - History of Present Illness Initial comments: CC: Weakness frequent falls HPI: This is a 79-year-old female with history of hypertension, insulin- dependent diabetes, CHF who presents with weakness and frequent falls reported to EMS by daughter. Patient states that she has been in her normal state of health. She denies history of CVA. She does not feel weak in her arms or legs. She does use a walker at home. She denies any pain at this time. Patient states that she has been in her normal state of health. She denies any discomfort. She does not have any physical concerns. According to electronic medical record, on March 26, patient was admitted 1 day observation stay at this hospital for treatment for pyelonephritis and hypoglycemia. MD Complaint: generalized weakness -: Gradual, days(s) (Several days) Location: generalized Severity: mild Consistency: constant Improves with: none Worsens with: none Associated Symptoms: other (Frequent falls generalized weakness) - Related Data Home Medications Medication Instructions Recorded Confirmed Last Taken Esomeprazole Magnesium 20 mg PO DAILY 03/26/20 04/05/20 Unknown Ezetimibe 10 mg PO DAILY 03/26/20 04/05/20 Unknown Hydralazine HCl 100 mg PO DAILY 03/26/20 04/05/20 Unknown Januvia 100 mg PO DAILY 03/26/20 04/05/20 Unknown Lasix TAB 20 mg PO DAILY 03/26/20 04/05/20 Unknown Metoprolol 100 mg DAILY 03/26/20 04/05/20 Unknown Olmesartan (Nf) 40 mg PO DAILY 03/26/20 04/05/20 Unknown Rosuvastatin (Nf) 40 mg PO DAILY 03/26/20 04/05/20 Unknown Spironolactone [Aldactone] 25 mg PO DAILY 03/26/20 04/05/20 Unknown Tresiba 54 units SUB-Q QHS 03/26/20 04/05/20 Unknown amLODIPine 10 mg PO DAILY 03/26/20 04/05/20 Unknown glipiZIDE 5 mg PO DAILY 03/26/20 04/05/20 Unknown Previous Rx's Medication Instructions Recorded Last Taken Type levoFLOXacin [Levaquin] 750 mg PO QDAY #5 tablet 03/27/20 Unknown Rx Allergies Allergy/AdvReac Type Severity Reaction Status Date / Time Sulfa (Sulfonamide Allergy Unknown Verified 03/26/20 14:50 Antibiotics) ED Review of Systems ROS: Stated complaint: GENERAL WEEKNESS,FREQUANT FALLS Other details as noted in HPI Comment: All other systems reviewed and negative Constitutional: denies: fever, malaise Respiratory: denies: cough, shortness of breath Cardiovascular: denies: chest pain Gastrointestinal: denies: abdominal pain, nausea, vomiting ED Past Medical Hx - Past Medical History Previous Medical History?: Yes Hx Hypertension: Yes Hx Congestive Heart Failure: Yes Hx Diabetes: Yes Hx COPD: No - Social History Smoking Status: Never Smoker - Medications Home Medications: Home Medications Medication Instructions Recorded Confirmed Last Taken Type Esomeprazole Magnesium 20 mg PO DAILY 03/26/20 04/05/20 Unknown History Ezetimibe 10 mg PO DAILY 03/26/20 04/05/20 Unknown History Hydralazine HCl 100 mg PO DAILY 03/26/20 04/05/20 Unknown History Januvia 100 mg PO DAILY 03/26/20 04/05/20 Unknown History Lasix TAB 20 mg PO DAILY 03/26/20 04/05/20 Unknown History Metoprolol 100 mg DAILY 03/26/20 04/05/20 Unknown History Olmesartan (Nf) 40 mg PO DAILY 03/26/20 04/05/20 Unknown History Rosuvastatin (Nf) 40 mg PO DAILY 03/26/20 04/05/20 Unknown History Spironolactone [Aldactone] 25 mg PO DAILY 03/26/20 04/05/20 Unknown History Tresiba 54 units SUB-Q QHS 03/26/20 04/05/20 Unknown History amLODIPine 10 mg PO DAILY 03/26/20 04/05/20 Unknown History glipiZIDE 5 mg PO DAILY 03/26/20 04/05/20 Unknown History levoFLOXacin [Levaquin] 750 mg PO QDAY #5 tablet 03/27/20 04/05/20 Unknown Rx ED Physical Exam - General Limitations: No Limitations General appearance: alert, in no apparent distress - Head Head exam: Present: atraumatic, normocephalic - Eye Eye exam: Present: normal appearance - ENT ENT exam: Present: mucous membranes moist - Neck Neck exam: Present: normal inspection, full ROM - Respiratory Respiratory exam: Present: normal lung sounds bilaterally. Absent: respiratory distress, wheezes, rales, rhonchi - Cardiovascular Cardiovascular Exam: Present: regular rate, normal rhythm, normal heart sounds. Absent: systolic murmur, diastolic murmur, rubs, gallop - GI/Abdominal GI/Abdominal exam: Present: soft, normal bowel sounds. Absent: distended, tenderness, guarding, rebound - Extremities Exam Extremities exam: Present: normal inspection - Neurological Exam Neurological exam: Present: alert, oriented X3, other (Intact strength in arms legs, no arm drift) - Psychiatric Psychiatric exam: Present: normal affect, normal mood - Skin Skin exam: Present: warm, dry, intact, normal color. Absent: rash ED Course Vital Signs 04/05/20 15:15 Temperature 98.4 F Pulse Rate 69 Respiratory 13 Rate Blood Pressure 141/58 [Right] O2 Sat by Pulse 100 Oximetry ED Medical Decision Making - Lab Data Result diagrams: 04/05/20 15:11 04/05/20 15:11 Laboratory Results - last 24 hr 04/05/20 04/05/20 04/05/20 15:11 15:11 Unknown WBC 6.7 RBC 3.92 Hgb 11.2 Hct 33.9 MCV 87 MCH 29 MCHC 33 RDW 16.9 H Plt Count 307 Add Manual Diff Complete Total Counted 100 Seg Neuts % (Manual) 68.0 Band Neutrophils % 0 Lymphocytes % (Manual) 20.0 Reactive Lymphs % (Man) 0 Monocytes % (Manual) 7.0 Eosinophils % (Manual) 4.0 Basophils % (Manual) 1.0 Metamyelocytes % 0 Myelocytes % 0 Promyelocytes % 0 Blast Cells % 0 Nucleated RBC % Not Reportable Seg Neutrophils # Man 4.6 Band Neutrophils # 0.0 Lymphocytes # (Manual) 1.3 Abs React Lymphs (Man) 0.0 Monocytes # (Manual) 0.5 Eosinophils # (Manual) 0.3 Basophils # (Manual) 0.1 Metamyelocytes # 0.0 Myelocytes # 0.0 Promyelocytes # 0.0 Blast Cells # 0.0 WBC Morphology Not Reportable Hypersegmented Neuts Not Reportable Hyposegmented Neuts Not Reportable Hypogranular Neuts Not Reportable Smudge Cells Not Reportable Toxic Granulation Not Reportable Toxic Vacuolation Not Reportable Dohle Bodies Not Reportable Pelger-Huet Anomaly Not Reportable [place] Rods Not Reportable Platelet Estimate Not Reportable Clumped Platelets Not Reportable Plt Clumps, EDTA Not Reportable Large Platelets Not Reportable Giant Platelets Not Reportable Platelet Satelliting Not Reportable Plt Morphology Comment Not Reportable RBC Morphology Normal Dimorphic RBCs Not Reportable Polychromasia Not Reportable Hypochromasia Not Reportable Poikilocytosis Not Reportable Anisocytosis Not Reportable Microcytosis Not Reportable Macrocytosis Not Reportable Spherocytes Not Reportable Pappenheimer Bodies Not Reportable Sickle Cells Not Reportable Target Cells Not Reportable Tear Drop Cells Not Reportable Ovalocytes Not Reportable Helmet Cells Not Reportable [place] Bodies Not Reportable [place] Rings Not Reportable [place] Cells Not Reportable Bite Cells Not Reportable Crenated Cell Not Reportable Elliptocytes Not Reportable Acanthocytes (Spur) Not Reportable Rouleaux Not Reportable Hemoglobin C Crystals Not Reportable Schistocytes Not Reportable Malaria parasites Not Reportable [place] Bodies Not Reportable Hem Pathologist Commnt No Sodium 146 H Potassium 3.4 L Chloride 109.7 H Carbon Dioxide 25 Anion Gap 15 BUN 18 H Creatinine 1.0 Estimated GFR > 60 BUN/Creatinine Ratio 18 Glucose 47 L Calcium 9.6 Urine Color Yellow Urine Turbidity Clear Urine pH 5.0 Ur Specific [place] 1.017 Urine Protein 100 mg/dl Urine Glucose (UA) Neg Urine Ketones Neg Urine Blood Neg Urine Nitrite Neg Urine Bilirubin Neg Urine Urobilinogen < 2.0 Ur Leukocyte Esterase Neg Urine WBC (Auto) 2.0 Urine RBC (Auto) < 1.0 U Epithel Cells (Auto) 2.0 Urine Mucus Few - Radiology Data Radiology results: report reviewed, image reviewed CT head without acute abnormality according to radiology impression. 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 Gates is a 79-year-old female with history of insulin-dependent diabetes CHF who was brought to the emergency department via EMS for reported weakness and frequent falls. Patient states that she is in her normal state of health. She denies any symptoms. CBC chemistry unremarkable with exception of hyporglycemia. Urinalysis without evidence of infection. CT head obtained to rule out intracranial hemorrhage or recent infarct. No evidence of infection. No evidence of injury due to several falls. No indication of CVA. Patient is discharged home. Critical care attestation.: If time is entered above; I have spent that time in minutes in the direct care of this critically ill patient, excluding procedure time. ED Disposition Clinical Impression: Hypoglycemia, Weakness, Frequent falls Disposition: DC-01 TO HOME OR SELFCARE Is pt being admited?: No Does the pt Need Aspirin: No Condition: Stable Instructions: Fall Prevention in the Home, Adult, [id number], Preventing Hypoglycemia Referrals: PRIMARY CAREMD [Primary Care Provider] - 3-5 Days CRYSTAL LOBO MD [Staff Physician] - 3-5 Days
[2020-04-05 15:31] LABS: Hematocrit 33.9 % (30.3-42.9); Hemoglobin 11.2 gm/dl (10.1-14.3); Mean Corpuscular HGB Conc 33 % (30-34); Mean Corpuscular Volume 87 fl (79-97); Platelet Count 307 K/mm3 (140-440); Red Blood Count 3.92 M/mm3 (3.65-5.03); Red Cell Distribution Width 16.9 % (13.2-15.2)
[2020-04-05 15:40] LABS: BUN/Creatinine Ratio 18; Blood Urea Nitrogen 18 mg/dL (7-17); Calcium 9.6 mg/dL (8.4-10.2); Hemolysis Index 3
--- NOTE | 2020-04-05 16:08 | XRay Report ---
CHEST 1 VIEW 04/05/2020 3:36 PM INDICATION / CLINICAL INFORMATION: Elderly patient with weakness and frequent falls. COMPARISON: Chest one view from 03/26/2020. FINDINGS: SUPPORT DEVICES: None. HEART / MEDIASTINUM: Stable. LUNGS / PLEURA: Nonspecific bilateral mild interstitial prominence is again noted without a dense are a of consolidation, pleural effusion or pneumothorax. ADDITIONAL FINDINGS: No significant additional findings. IMPRESSION: 1. No acute abnormality of the chest. No significant interval changes. Signer Name: Roberto Ovalle MD Signed: 04/05/2020 4:03 PM Workstation Name: [id number]
--- NOTE | 2020-04-05 16:22 | Cat Scan Report ---
CT HEAD WITHOUT CONTRAST HISTORY: Weakness. TECHNIQUE: Axial imaging performed from the skull apex through the skull base without the use of con trast. All CT scans at this location are performed using CT dose reduction for ALARA by means of aut omated exposure control. COMPARISON: None FINDINGS: Parenchyma: No acute intracranial hemorrhage or parenchymal abnormality. Mild hypoattenuation throu ghout the white matter is noted and consistent with chronic microvascular ischemic disease. 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 Ventricles: There is mild diffuse brain atrophy with commensurate ventricular enlargement which is l ikely age appropriate. Soft tissues: Soft tissues including the orbits appear normal. Bones: No acute osseous abnormality. Sinuses: Sinuses and mastoid air cells are clear. IMPRESSION: No acute abnormality. Chronic findings as described above. Signer Name: Jeovany Jones Jr, MD Signed: 04/05/2020 4:17 PM Workstation Name: [id number]
[2020-04-05 16:52] LABS: RBC Morphology Normal; Total Cells Counted 100
[2020-04-05 17:34] LABS: Bilirubin,Urine NEG (Negative); Blood,Urine NEG (Negative); Color,Urine Yellow (Yellow); Mucus,Urine FEW /HPF; RBC,Urine < 1.0 /HPF (0.0-6.0); Urobilinogen,Urine < 2.0 mg/dL (<2.0)
[2020-04-05 19:03] VITALS: BP 150/60
== END 2020-04-05 21:58 | disposition home or self-care (01) ==
LOC: ED 14:54
DX: E16.2 Hypoglycemia, unspecified (principal); R53.1 Weakness; Z91.81 History of falling; I11.0 Hypertensive heart disease with heart failure; I50.9 Heart failure, unspecified; E11.9 Type 2 diabetes mellitus without complications; Z79.899 Other long term (current) drug therapy; Z88.2 Allergy status to sulfonamides
CPT/HCPCS: 36415; 70450; 71045; 80048; 81001; 82962; 85007; 85025